=== PATIENT | female | born 1955 | race African-American/Black ===

== ENCOUNTER 2016-11-25 03:54 | Emergency (ER) ==
[2016-11-25 04:07] VITALS: BP 156/90; TEMP 97.7; BMI 26.0
[2016-11-25] MEDS ORDERED: DECADRON 4 MG/ML SDV IM STA (04:15)
[2016-11-25] MEDS ORDERED: BENADRYL IM STA (04:16)
--- NOTE | 2016-11-25 05:37 | ED.PDOC ---
General ED Provider: Dr. MARIANO MÉNDEZ-ER Chief Complaint: Allergic Reaction Stated Complaint: my arm and my ear itch Time Seen by Physician: 04:00 Mode of Arrival: Walk-In Information Source: Patient Exam Limitations: No limitations Primary Care Provider: HANSA BARCENAS Nursing and Triage Documentation Reviewed and Agree: Yes Skin Complaint Exam - Skin/Soft Tissue Complaint/Exam Onset/Duration: 1hr Symptoms Are: Still present Timing: Constant Initial Severity: Mild Current Severity: Mild Location: left arm and left ear Character: Reports: Redness, Swelling, Raised. Denies: Painful Aggravating: Reports: None Alleviating: Reports: None Associated Signs and Symptoms: Denies: Fever, Chills, Itching, Drainage, Bruising, Tenderness, Red streaks, Joint swelling Related History: Reports: Insect bite/sting Related Surgical History: Reports: None Recent Exposure to Others w/Similar Symptoms: No Joint Tenderness Present: No Differential Diagnoses: Other Review of Systems - Review Of Systems Constitutional: Reports: No symptoms Eyes: Reports: No symptoms Ears, Nose, Mouth, Throat: Reports: No symptoms Respiratory: Reports: No symptoms Cardiac: Reports: No symptoms GI: Reports: No symptoms : Reports: No symptoms Musculoskeletal: Reports: No symptoms Skin: Reports: Lumps, Rash Neurological: Reports: No symptoms Endocrine: Reports: No symptoms Hematologic/Lymphatic: Reports: No symptoms All Other Systems: Reviewed and Negative Past Medical History - Past Medical History Previously Healthy: No Endocrine: Reports: DM 2 Cardiovascular: Reports: Hypertension Respiratory: Reports: COPD Hematological: Reports: Anemia Gastrointestinal: Reports: GERD Genitourinary: Reports: None Neuro/Psych: Reports: Anxiety, Depression Musculoskeletal: Reports: None Cancer: Reports: None Last Menstrual Period: post menopausal x 10 yrs - Surgical History General Surgical History: Reports: None - Family History Family History: Reports: None - Social History Smoking Status: Never smoker Hx Substance Use: No Alcohol Screening: None - Immunizations Tetanus Shot up to Date: No Physical Exam - Physical Exam Appearance: Well-appearing, No pain distress, Well-nourished Eyes: SCARLETT, EOMI, Conjunctiva clear ENT: Ears normal, Nose normal, Oropharynx normal Neck: Supple Respiratory: Airway patent, Breath sounds clear, Breath sounds equal, Respirations nonlabored Cardiovascular: RRR, Pulses normal, No rub, No murmur GI/: Soft, Nontender, No masses, Bowel sounds normal, No Organomegaly Musculoskeletal: Normal strength, ROM intact, No edema, No calf tenderness Skin: Warm, Dry, Normal color Neurological: Sensation intact, Motor intact, Reflexes intact, Cranial nerves intact, Alert, Oriented Psychiatric: Affect appropriate, Mood appropriate Re-Evaluation - Re-Evaluation Time of Re-Evaluation: 05:36 Status: Improved (swelling down--pruritis improved) Vital Signs Stable: Yes Pain Level: o Appearance: NAD Lungs: Clear Skin: Warm and Dry Neuro: Alert and Oriented X3 CV: RRR Critical Care Note - Critical Care Note Total Time (mins): 0 Course - Course Orders, Labs, Meds: Orders Category Date Time Status Dexamethasone 4 mg/ml Inj [Decadron 4 mg/ml Sdv] MEDS 11/25/16 04:15 Discontinued 8 mg IM ONCE STA Diphenhydramine Inj [Benadryl] MEDS 11/25/16 04:16 Discontinued 50 mg IM ONCE STA Medications Discontinued Medications Generic Name Dose Route Start Last Admin Trade Name Freq PRN Reason Stop Dose Admin Dexamethasone Sodium Phosphate 8 mg 11/25/16 04:15 11/25/16 04:21 Decadron 4 Mg/Ml Sdv IM 11/25/16 04:16 8 mg ONCE STA Administration Diphenhydramine HCl 50 mg 11/25/16 04:16 11/25/16 04:21 Benadryl IM 11/25/16 04:17 50 mg ONCE STA Administration Vital Signs: Temp Pulse Resp BP Pulse Ox 11/25/16 03:57 97.7 F 70 18 156/90 H 97 Departure - Departure Time of Disposition: 05:36 Disposition: HOME SELF-CARE Discharge Problem: Allergic state Instructions: Urticaria (ED) Condition: Good Pt referred to PMD for follow-up: Yes Additional Instructions: continue antihistamine--prednisone 30mg x 2 dayas then 20mg x 2 days then 10mg x 2 dayxs--return prn Allergies/Adverse Reactions: Allergies No Known Allergies Allergy (Verified 11/25/16 04:07) Home Medications: Ambulatory Orders Hum Insulin NPH/Reg Insulin Hm [Humulin 70-30 Pen] 30 units SQ BID 05/28/13 Metformin HCl 500 mg PO BIDWM 05/28/13 Potassium Chloride [Klor-Con 10] 20 meq PO BID 05/28/13 Simvastatin [Zocor] 20 mg PO BEDTIME 05/28/13 Aspirin [Aspirin EC] 81 mg PO DAILYWM 08/09/14 Hydralazine HCl 100 mg PO TIDWM 08/09/14 Clonidine HCl 0.2 mg PO TID #90 tablet 07/10/15 Chlorthalidone 25 mg PO DAILY 07/28/15 Metoprolol Succinate [Toprol Xl] 50 mg PO BID 07/28/15 Ranitidine HCl 150 mg PO BID 02/18/16 Amlodipine Besylate 5 mg PO BID #60 tablet 06/06/16 Cephalexin [Keflex] 500 mg PO Q8HR #15 capsule 06/06/16 Losartan Potassium [Cozaar] 50 mg PO BID #60 tablet 06/06/16 Disposition Discussed With: Patient
== END 2016-11-25 05:40 | disposition home or self-care (01) ==
LOC: ED 03:54
DX: L50.0 Allergic urticaria (principal)
CPT/HCPCS: 96372; 99282

== ENCOUNTER 2016-11-27 09:56 | Outpatient (CLI) ==
[2016-11-27 10:39] LABS: BASOPHILS % (AUTO) 0.3 % (0.0-3.0); EOSINOPHILS # (AUTO) 0.2 K/ul (0.0-0.7); HEMATOCRIT 36.9 % (37.0-47.0); HEMOGLOBIN 12.3 g/dl (12.0-16.0); IMMATURE GRANULOCYTE % (AUTO) 0.9 % (0.0-5.0); LYMPHOCYTES # (AUTO) 5.7 K/uL (0.60-3.4); MEAN CORPUSCULAR HEMOGLOBIN 25.6 pg (27.0-31.0); MEAN CORPUSCULAR HGB CONC 33.3 (31.8-35.4); MEAN CORPUSCULAR VOLUME 76.9 fl (81.0-99.0); MONOCYTES # (AUTO) 1.2 K/uL (0.4-2.0); MONOCYTES % (AUTO) 7.9 (0-10); NEUTROPHILS # (AUTO) 7.5 K/ul (2.0-6.9); NEUTROPHILS % (AUTO) 50.9; PLATELET COUNT 273 10^3/uL (140-440); WHITE BLOOD COUNT 14.72 K/ul (4.6-10.2)
[2016-11-27 11:22] LABS: ALBUMIN/GLOBULIN RATIO 1.03; ANION GAP 14.9; BILIRUBIN,TOTAL 0.31 mg/dL (0.00-1.20); BUN/CREATININE RATIO 20.54; CALCIUM 9.9 mg/dL (8.2-10.2); CREATININE 1.46 mg/dL (0.60-1.30); POTASSIUM 2.9 mmol/L (3.5-5.10); TOTAL PROTEIN 7.9 g/dL (5.8-8.1)
== END 2016-11-27 09:57 | disposition home or self-care (01) ==
LOC: LAB 09:56
PROVIDERS: ATTEND Emergency Medicine
DX: E11.9 Type 2 diabetes mellitus without complications (principal); I10 Essential (primary) hypertension; D64.9 Anemia, unspecified
CPT/HCPCS: 36415; 80053; 80061; 83036; 84443; 85025

== ENCOUNTER 2017-02-04 14:56 | Outpatient (CLI) ==
[2017-02-04 15:31] LABS: BASOPHILS % (AUTO) 0.5 % (0.0-3.0); EOSINOPHILS # (AUTO) 0.1 K/ul (0.0-0.7); EOSINOPHILS % (AUTO) 1.6 % (0.0-7.0); HEMATOCRIT 35.1 % (37.0-47.0); HEMOGLOBIN 11.9 g/dl (12.0-16.0); IMMATURE GRANULOCYTE % (AUTO) 0.6 % (0.0-5.0); LYMPHOCYTES # (AUTO) 3.1 K/uL (0.60-3.4); LYMPHOCYTES % (AUTO) 39.9 (10.0-50.0); MEAN CORPUSCULAR HEMOGLOBIN 26.4 pg (27.0-31.0); MEAN CORPUSCULAR HGB CONC 33.9 (31.8-35.4); MEAN CORPUSCULAR VOLUME 77.8 fl (81.0-99.0); MONOCYTES # (AUTO) 0.6 K/uL (0.4-2.0); MONOCYTES % (AUTO) 7.1 (0-10); NEUTROPHILS # (AUTO) 3.9 K/ul (2.0-6.9); NEUTROPHILS % (AUTO) 50.3; PLATELET COUNT 254 10^3/uL (140-440); RED BLOOD COUNT 4.51 10^6/ul (4.20-5.40); WHITE BLOOD COUNT 7.71 K/ul (4.6-10.2)
[2017-02-04 16:01] LABS: ALBUMIN 3.7 g/dL (3.4-5.0); ALBUMIN/GLOBULIN RATIO 1.16; ANION GAP 12.3; BILIRUBIN,TOTAL 0.31 mg/dL (0.00-1.20); BUN/CREATININE RATIO 13.13; CALCIUM 9.1 mg/dL (8.2-10.2); CHOL/HDL RATIO 4.3 (4.5-5.5); CREATININE 1.37 mg/dL (0.60-1.30); POTASSIUM 3.3 mmol/L (3.5-5.10); TOTAL PROTEIN 6.9 g/dL (5.8-8.1)
== END 2017-02-04 14:57 | disposition home or self-care (01) ==
LOC: LAB 14:56
PROVIDERS: ATTEND Internal Medicine
DX: E11.9 Type 2 diabetes mellitus without complications (principal); E78.5 Hyperlipidemia, unspecified; N18.9 Chronic kidney disease, unspecified; D63.1 Anemia in chronic kidney disease; K21.9 Gastro-esophageal reflux disease without esophagitis; I51.7 Cardiomegaly; Z79.899 Other long term (current) drug therapy
CPT/HCPCS: 36415; 80053; 80061; 82306; 83036; 84443; 85025

== ENCOUNTER 2017-06-29 12:37 | Outpatient (CLI) ==
[2017-06-29 12:59] LABS: BASOPHILS % (AUTO) 0.2 % (0.0-3.0); EOSINOPHILS # (AUTO) 0.1 K/ul (0.0-0.7); EOSINOPHILS % (AUTO) 1.8 % (0.0-7.0); HEMATOCRIT 35.8 % (37.0-47.0); IMMATURE GRANULOCYTE % (AUTO) 0.2 % (0.0-5.0); LYMPHOCYTES % (AUTO) 16.9 (10.0-50.0); MEAN CORPUSCULAR HEMOGLOBIN 26.1 pg (27.0-31.0); MEAN CORPUSCULAR HGB CONC 33.5 (31.8-35.4); MONOCYTES # (AUTO) 0.4 K/uL (0.4-2.0); NEUTROPHILS # (AUTO) 4.5 K/ul (2.0-6.9); NEUTROPHILS % (AUTO) 74.9; PLATELET COUNT 232 10^3/uL (140-440); RED BLOOD COUNT 4.59 10^6/ul (4.20-5.40); WHITE BLOOD COUNT 6.04 K/ul (4.6-10.2)
[2017-06-29 14:06] LABS: ALBUMIN 3.2 g/dL (3.4-5.0); ALBUMIN/GLOBULIN RATIO 0.86; ANION GAP 11.8; BILIRUBIN,TOTAL 0.42 mg/dL (0.00-1.20); BUN/CREATININE RATIO 17.69; CALCIUM 8.6 mg/dL (8.2-10.2); CREATININE 1.13 mg/dL (0.60-1.30); POTASSIUM 3.8 mmol/L (3.5-5.10); TOTAL PROTEIN 6.9 g/dL (5.8-8.1)
== END 2017-06-29 12:38 | disposition home or self-care (01) ==
LOC: LAB 12:37
PROVIDERS: ATTEND Internal Medicine
DX: E78.5 Hyperlipidemia, unspecified (principal); E11.9 Type 2 diabetes mellitus without complications; I10 Essential (primary) hypertension; K21.9 Gastro-esophageal reflux disease without esophagitis; I51.7 Cardiomegaly
CPT/HCPCS: 36415; 80053; 80061; 82607; 83036; 84443; 85025

== ENCOUNTER 2017-11-20 09:31 | Outpatient (CLI) ==
--- NOTE | 2017-11-20 11:45 | MAMMO ---
EXAM: Digital screening mammogram with tomosynthesis HISTORY: Screening COMPARISON: 12/09/2013 FINDINGS: Digital MLO and CC views of the right and left breast were performed. Tomosynthesis was p erformed. Computer aided detection utilized. Bilateral symmetric deodorant artifact noted in the axi llary regions. There are scattered fibroglandular densities. There is no evidence for mass, asymmet ry, distortion, or suspicious calcifications in either breast. IMPRESSION: 1. No evidence of malignancy in the right or left breast. 2. Annual screening mammogram is recommended in one year. BIRADS category 1, negative examination
== END 2017-11-20 09:32 | disposition home or self-care (01) ==
LOC: RAD 09:31
PROVIDERS: ATTEND Internal Medicine
DX: Z12.31 Encounter for screening mammogram for malignant neoplasm of breast (principal); E11.9 Type 2 diabetes mellitus without complications; E78.5 Hyperlipidemia, unspecified; I10 Essential (primary) hypertension
CPT/HCPCS: 36415; 77067; 80053; 80061; 83036; 84443; 85025

== ENCOUNTER 2018-01-21 13:28 | Outpatient (CLI) | END 2018-01-21 13:29 | disposition home or self-care (01) | LOC: LAB 13:28 | PROVIDERS: ATTEND Internal Medicine | DX: E11.9 Type 2 diabetes mellitus without complications (principal) | CPT/HCPCS: 81050; 82575; 84156; 87800 ==

== ENCOUNTER 2018-02-23 12:20 | Emergency (ER) ==
[2018-02-23 12:25] VITALS: BP 166/77; TEMP 98.9; BMI 26.6
--- NOTE | 2018-02-23 12:43 | ED.PDOC ---
General ED Provider: Dr. DEBBY BORREGO Chief Complaint: Headache Stated Complaint: facial pain .pt states her sinuses are tender Time Seen by Physician: 12:30 (pain consistent with prior sinus attacks ) Mode of Arrival: Walk-In Information Source: Patient Exam Limitations: No limitations Primary Care Provider: HANSA BARCENAS Nursing and Triage Documentation Reviewed and Agree: Yes Does patient meet sepsis criteria?: No If yes, has appropriate treatment been initiated?: No System Inflammatory Response Syndrome: Not Applicable Sepsis Protocol: For patient's 13 years and over: Temp is 96.8 and below OR 101 and greater Pulse >90 BPM Resp >20/minute Acutely Altered Mental Status Are patient's symptoms suggestive of a new infection, such as: -Pneumonia -Skin, Soft Tissue -Endocarditis -UTI -Bone, Joint Infection -Implantable Device -Acute Abdominal Infection -Wound Infection -Meningitis -Blood Stream Catheter Infection -Unknown EENT Complaint Exam - Nasal Complaint/Exam Onset/Duration: 1 da7 Symptoms Are: Still present Timing: Intermittent Initial Severity: Mild Current Severity: Mild Location: Posterior drainage Aggravating: Reports: None Alleviating: Reports: None Associated Signs and Symptoms: Reports: Nasal congestion, Sinus pain. Denies: Bruising, Hematuria, Hematochezia, Nasal discharge, Foreign body, Abnormal coags Related History: Reports: Similar episode Nasal Surgical History: Reports: None Foreign Body Present: No Differential Diagnoses: Sinusitis Review of Systems - Review Of Systems Constitutional: Reports: No symptoms Eyes: Reports: No symptoms Ears, Nose, Mouth, Throat: Reports: Nose pain (facial pain over maxillary sinuses ) Respiratory: Reports: No symptoms Cardiac: Reports: No symptoms GI: Reports: No symptoms : Reports: No symptoms Musculoskeletal: Reports: No symptoms Skin: Reports: No symptoms Neurological: Reports: Headache Endocrine: Reports: No symptoms Hematologic/Lymphatic: Reports: No symptoms All Other Systems: Reviewed and Negative Past Medical History - Past Medical History Previously Healthy: No Endocrine: Reports: DM 2 Cardiovascular: Reports: Hypertension Respiratory: Reports: COPD Hematological: Reports: Anemia Gastrointestinal: Reports: GERD Genitourinary: Reports: None Neuro/Psych: Reports: Anxiety, Depression Musculoskeletal: Reports: None Cancer: Reports: None Last Menstrual Period: menopause - Surgical History General Surgical History: Reports: None - Family History Family History: Reports: None - Social History Smoking Status: Never smoker Hx Substance Use: No Alcohol Screening: None Physical Exam - Physical Exam Appearance: Well-appearing, No pain distress, Well-nourished Eyes: SCARLETT, EOMI, Conjunctiva clear ENT: Oropharynx normal (pain over maxillary sinuses ) Respiratory: Airway patent, Breath sounds clear, Breath sounds equal, Respirations nonlabored Cardiovascular: RRR, Pulses normal, No rub, No murmur GI/: Soft, Nontender, No masses, Bowel sounds normal, No Organomegaly Musculoskeletal: Normal strength, ROM intact, No edema, No calf tenderness Skin: Warm, Dry, Normal color Neurological: Sensation intact, Motor intact, Reflexes intact, Cranial nerves intact, Alert, Oriented Psychiatric: Affect appropriate, Mood appropriate Critical Care Note - Critical Care Note Total Time (mins): 0 Course - Course Vital Signs: Temp Pulse Resp BP Pulse Ox 02/23/18 12:20 98.9 F 80 16 166/77 H 95 Departure - Departure Time of Disposition: 12:44 Disposition: HOME SELF-CARE Discharge Problem: Headache Maxillary sinusitis Qualifiers: Chronicity: acute Recurrence: not specified as recurrent Qualified Code(s): J01.00 - Acute maxillary sinusitis, unspecified Instructions: Sinusitis (ED) Condition: Good Pt referred to PMD for follow-up: Yes IPMP verified?: No Additional Instructions: Please call your Family Physician as soon as possible to schedule a follow-up appointment. Prescriptions: Amoxicillin 500 mg PO Q8HR #21 tablet Prednisone 20 mg PO DAILYWM #7 tablet Allergies/Adverse Reactions: Allergies No Known Allergies Allergy (Verified 02/23/18 12:27) Home Medications: Ambulatory Orders Hum Insulin NPH/Reg Insulin Hm [Humulin 70-30 Pen] 30 units SQ BID 05/28/13 Metformin HCl 500 mg PO BIDWM 05/28/13 Potassium Chloride [Klor-Con 10] 20 meq PO BID 05/28/13 Simvastatin [Zocor] 20 mg PO BEDTIME 05/28/13 Aspirin [Aspirin EC] 81 mg PO DAILYWM 08/09/14 Hydralazine HCl 100 mg PO TIDWM 08/09/14 Clonidine HCl 0.2 mg PO TID #90 tablet 07/10/15 Chlorthalidone 25 mg PO DAILY 07/28/15 Metoprolol Succinate [Toprol Xl] 50 mg PO BID 07/28/15 Ranitidine HCl 150 mg PO BID 02/18/16 Amlodipine Besylate 5 mg PO BID #60 tablet 06/06/16 Losartan Potassium [Cozaar] 50 mg PO BID #60 tablet 06/06/16 Amoxicillin 500 mg PO Q8HR #21 tablet 02/23/18 Prednisone 20 mg PO DAILYWM #7 tablet 02/23/18
== END 2018-02-23 12:50 | disposition home or self-care (01) ==
LOC: ED 12:20
DX: J01.00 Acute maxillary sinusitis, unspecified (principal)
CPT/HCPCS: 99282

== ENCOUNTER 2018-05-19 15:46 | Outpatient (CLI) | END 2018-05-19 15:47 | disposition home or self-care (01) | LOC: LAB 15:46 | PROVIDERS: ATTEND Internal Medicine | DX: E78.5 Hyperlipidemia, unspecified (principal); E11.9 Type 2 diabetes mellitus without complications; I10 Essential (primary) hypertension | CPT/HCPCS: 36415; 80053; 80061; 84439; 84443 ==

== ENCOUNTER 2018-05-28 08:13 | Outpatient (CLI) | END 2018-05-28 08:14 | disposition home or self-care (01) | LOC: LAB 08:13 | PROVIDERS: ATTEND Internal Medicine | DX: E78.5 Hyperlipidemia, unspecified (principal); I10 Essential (primary) hypertension; E11.9 Type 2 diabetes mellitus without complications | CPT/HCPCS: 36415; 83036; 85025 ==

== ENCOUNTER 2018-09-06 10:25 | Outpatient (CLI) ==
[2018-06-26 16:43] VITALS: BMI 26.4
== END 2018-09-06 10:26 | disposition home or self-care (01) ==
LOC: LAB 10:25
PROVIDERS: ATTEND Internal Medicine
DX: E78.5 Hyperlipidemia, unspecified (principal); E11.9 Type 2 diabetes mellitus without complications; I10 Essential (primary) hypertension
CPT/HCPCS: 36415; 80053; 80061; 83036; 84439; 84443; 85025

== ENCOUNTER 2018-11-16 22:02 | Emergency (ER) ==
[2018-11-16 22:11] VITALS: TEMP 99.2; BMI 25.7
--- NOTE | 2018-11-16 22:37 | ED.PDOC ---
General ED Provider: Dr. DAVID ORNELAS Chief Complaint: Hypertension Stated Complaint: takes 6 antrihypertensive action meds on clock time based schedule.Took all so far yet BP stayed at 191/115 what made her come in.No distress, Time Seen by Physician: 22:50 Mode of Arrival: Walk-In Information Source: Patient Exam Limitations: No limitations Primary Care Provider: HANSA BARCENAS Nursing and Triage Documentation Reviewed and Agree: Yes Does patient meet sepsis criteria?: Yes If yes, has appropriate treatment been initiated?: Yes System Inflammatory Response Syndrome: Not Applicable Sepsis Protocol: For patient's 13 years and over: Temp is 96.8 and below OR 101 and greater Pulse >90 BPM Resp >20/minute Acutely Altered Mental Status Are patient's symptoms suggestive of a new infection, such as: -Pneumonia -Skin, Soft Tissue -Endocarditis -UTI -Bone, Joint Infection -Implantable Device -Acute Abdominal Infection -Wound Infection -Meningitis -Blood Stream Catheter Infection -Unknown Cardiovascular Complaint Exam - Hypertension Complaint/Exam Onset/Duration: today Symptoms Are: Still present Timing: Constant Reported B/P Prior to Arrival: 200/94 Aggravating: Reports: Exertion Alleviating: Reports: None Associated Signs and Symptoms: Reports: Anxiety Related History: Reports: Similar episode, Current ARBs, Current Beta Yuri, Current Ca Vann.Yuri, Current Diuretic, Other Related Surgical History: Reports: None Cardiac Risk Factors: Reports: Hypertension, Diabetes Recent Change in Medications: No A/V [place]: No Papilledema Present: No JVD Present: No Carotid Bruit Present: No Femoral Pulses Bounding: No Differential Diagnoses: Hypertension, Hypertensive Urgency, Hyperthyroidism, [place] , Other Quality Indicator For Non-Traumatic Chest Pain/Syncope: EKG Performed Review of Systems - Review Of Systems Constitutional: Reports: No symptoms Eyes: Reports: No symptoms Ears, Nose, Mouth, Throat: Reports: No symptoms Respiratory: Reports: No symptoms Cardiac: Reports: No symptoms GI: Reports: No symptoms : Reports: No symptoms Musculoskeletal: Reports: Muscle pain Skin: Reports: No symptoms Neurological: Reports: No symptoms Endocrine: Reports: No symptoms Hematologic/Lymphatic: Reports: No symptoms All Other Systems: Reviewed and Negative Past Medical History - Past Medical History Previously Healthy: No Endocrine: Reports: DM 2 Cardiovascular: Reports: Hypertension Respiratory: Reports: COPD Hematological: Reports: Anemia Gastrointestinal: Reports: GERD Genitourinary: Reports: None Neuro/Psych: Reports: Anxiety, Depression Musculoskeletal: Reports: None Cancer: Reports: None Last Menstrual Period: UNKNOWN - Surgical History General Surgical History: Reports: None - Family History Family History: Reports: None - Social History Smoking Status: Never smoker Hx Substance Use: No Alcohol Screening: Occasionally - Immunizations Tetanus Shot up to Date: No Physical Exam - Physical Exam Appearance: Well-appearing Ill-appearing: None Pain Distress: None Eyes: SCARLETT, EOMI, Conjunctiva clear ENT: Ears normal, Nose normal, Oropharynx normal Neck: Supple Respiratory: Airway patent, Breath sounds clear, Respirations nonlabored Cardiovascular: RRR, Pulses normal, No rub GI/: Soft, Nontender Musculoskeletal: Normal strength, No edema Skin: Warm Neurological: Sensation intact, Cranial nerves intact, Alert, Oriented Psychiatric: Affect appropriate Interpretation - EKG Interpretation Time of EKG #1: 23:10 (LVH,PT denies [place]) Rate: Normal Rhythm: Sinus Re-Evaluation - Re-Evaluation Time of Re-Evaluation: 23:24 Status: Improved Vital Signs Stable: Yes Appearance: NAD Lungs: Clear Skin: Warm and Dry Neuro: Alert and Oriented X3 CV: RRR - Re-Evaluation Time of Re-Evaluation: 23:49 Vital Signs Stable: Yes (155/76) Physician Notification - Case Discussed Physician Notified: Dr Barcenas consulted Time of Notification: 22:30 ('s patient) Critical Care Note - Critical Care Note Total Time (mins): 0 Course - Course Hematology/Chemistry: 11/16/18 23:15 Orders, Labs, Meds: Lab Review 11/16/18 11/16/18 23:15 23:25 Sodium 137.7 Potassium 3.39 L Chloride 101.9 Carbon Dioxide 24.3 Anion Gap 14.89 BUN 20.2 H Creatinine 1.37 H Estimated GFR (MDRD) 47.00 BUN/Creatinine Ratio 14.74 Glucose 242.3 H Calcium 9.13 Total Bilirubin 0.27 AST 23.3 ALT 20.9 Alkaline Phosphatase 116.9 Troponin I < 0.012 Total Protein 6.96 Albumin 4.22 Globulin 2.74 Albumin/Globulin Ratio 1.54 Urine Color Light Urine Clarity Clear Urine pH 7.5 Ur Specific [place] 1.020 Urine Protein 2+ Urine Glucose (UA) 1+ Urine Ketones Negative Urine Blood Trace-intact Urine Nitrite Negative Urine Bilirubin Negative Urine Urobilinogen 0.2 Ur Leukocyte Esterase Negative Urine Microscopic RBC 5-10 Ur Squamous Epith Cells 2-5 Orders Category Date Time Status EKG-(ED ONLY) Stat CARDIO 11/16/18 23:01 Ordered IV [ED IV/MEDIPORT/POWERPORT] .ONCE EMERGENCY 11/16/18 22:55 Active Vital signs [ED VITAL SIGNS] .ONCE EMERGENCY 11/16/18 23:42 Ordered COMPREHENSIVE METABOLIC PANEL Stat LAB 11/16/18 23:15 Results TROPONIN I Stat LAB 11/16/18 23:15 Results URINALYSIS WITH MICROSCOPIC Stat LAB 11/16/18 23:25 Completed 0.9 % Sodium Chloride [Saline Flush] MEDS 11/16/18 22:55 Ordered 1 syr IVF PRN PRN Amlodipine Besylate [Norvasc] MEDS 11/16/18 22:47 Discontinued 5 mg PO ONCE STA Enalaprilat Dihydrate [Vasotec IV] MEDS 11/16/18 22:46 Discontinued 1.25 mg IVP ONCE STA Medications Generic Name Dose Route Start Last Admin Trade Name Freq PRN Reason Stop Dose Admin Sodium Chloride 1 syr 11/16/18 22:55 11/16/18 23:00 Saline Flush IVF 1 syr PRN PRN Administration To flush IV Discontinued Medications Generic Name Dose Route Start Last Admin Trade Name Freq PRN Reason Stop Dose Admin Amlodipine Besylate 5 mg 11/16/18 22:47 11/16/18 22:56 Norvasc PO 11/16/18 22:48 5 mg ONCE STA Administration Enalaprilat 1.25 mg 11/16/18 22:46 11/16/18 22:57 Vasotec Iv IVP 11/16/18 22:47 1.25 mg ONCE STA Administration Vital Signs: Temp Pulse Resp BP Pulse Ox 11/16/18 22:03 99.2 F 91 H 16 211/94 H 97 AMI Core - EKG Initial Interpretation EKG Initial Interpretation Date: 11/16/18 (NSR,LVH,Patient denies any [place]) LYNNE Risk Score LYNNE Risk Score: Risk Score Odds of by 30D 0 0.1 (0.1-0.2) 1 0.3 (0.2-0.3) 2 0.4 (0.3-0.5) 3 0.7 (0.6-0.9) 4 1.2 (1.0-1.5) 5 2.2 (1.9-2.6) 6 3.0 (2.5-3.6) 7 4.8 (3.8-6.1) Departure - Departure Time of Disposition: 23:50 Disposition: HOME SELF-CARE Discharge Problem: Hypertension associated with diabetes Instructions: Type 2 Diabetes in Adults: New Diagnosis (DC) Condition: Good Pt referred to PMD for follow-up: Yes (fu with Dr Barcenas at am.) IPMP verified?: No Allergies/Adverse Reactions: Allergies No Known Allergies Allergy (Verified 11/16/18 22:11) Home Medications: Ambulatory Orders Hum Insulin NPH/Reg Insulin Hm [Humulin 70-30 Pen] 30 units SQ BID 05/28/13 Metformin HCl 500 mg PO BIDWM 05/28/13 Simvastatin [Zocor] 20 mg PO BEDTIME 05/28/13 Hydralazine HCl 100 mg PO TIDWM 08/09/14 Clonidine HCl 0.2 mg PO TID #90 tablet 07/10/15 Metoprolol Succinate [Toprol Xl] 50 mg PO BID 07/28/15 Ranitidine HCl 150 mg PO BID 02/18/16 Amlodipine Besylate 10 mg PO BID 11/16/18 Furosemide 20 mg PO DAILY 11/16/18 Losartan Potassium [Cozaar] 100 mg PO DAILY 11/16/18 Potassium Chloride 10 meq PO TID 11/16/18 Disposition Discussed With: Patient, Family
[2018-11-16] MEDS ORDERED: VASOTEC IV IVP STA (22:46)
[2018-11-16] MEDS ORDERED: NORVASC PO STA (22:47)
[2018-11-17 00:04] VITALS: BP 155/78
== END 2018-11-17 00:02 | disposition home or self-care (01) ==
LOC: ED 22:02
DX: I10 Essential (primary) hypertension (principal); E11.9 Type 2 diabetes mellitus without complications; Z79.899 Other long term (current) drug therapy
CPT/HCPCS: 36415; 80053; 81001; 84484; 93005; 93010; 96374; 99283

== ENCOUNTER 2018-12-13 15:31 | Observation (INO) ==
[2018-12-13 16:02] VITALS: BMI 26.5
[2018-12-13] MEDS ORDERED: NITROSTAT SL PRN (16:13)
[2018-12-13] MEDS ORDERED: TYLENOL PO PRN (16:13)
[2018-12-13] MEDS ORDERED: ATROPINE SULFATE PFS IVP PRN (16:13)
[2018-12-13] MEDS ORDERED: VISTARIL INJ IM PRN (16:13)
[2018-12-13] MEDS ORDERED: SODIUM CHLORIDE 1,000 ML IV SCH ×2 (16:30→20:00)
--- NOTE | 2018-12-13 17:12 | DI ---
EXAM: Chest two views HISTORY: Shortness of breath COMPARISON: 06/04/2016 TECHNIQUE: Two views of the chest were performed FINDINGS: The lungs are clear. There is no pleural effusion or pneumothorax. The heart is normal i n size. The mediastinal contour is normal. There are no acute abnormalities of the bones. IMPRESSION: No acute cardiopulmonary process.
[2018-12-13] MEDS: CATAPRES PO SCH (17:27)
[2018-12-13] MEDS: APRESOLINE PO SCH (17:27)
[2018-12-13] MEDS: MICRO-K CAP PO SCH (17:28)
[2018-12-13] MEDS ORDERED: NON-FORMULARY MEDICATION (Potassium Chloride [Potassium Chloride] 10 MEQ) PO SCH (18:00)
[2018-12-13] MEDS ORDERED: NON-FORMULARY MEDICATION (Hydralazine Hcl [Hydralazine Hcl] 100 MG) PO SCH (18:00)
[2018-12-13] MEDS ORDERED: NON-FORMULARY MEDICATION (Clonidine Hcl [Clonidine Hcl] 0.2 MG) PO SCH (18:00)
[2018-12-13] MEDS ORDERED: VASOTEC IV IVP STA (19:44)
[2018-12-13] MEDS ORDERED: VASOTEC IV IVP PRN (19:45)
[2018-12-13] MEDS ORDERED: INSULIN ISOPHANE SQ SCH (21:00)
[2018-12-13] MEDS ORDERED: INSULIN REGULAR SQ SCH (21:00)
[2018-12-13] MEDS ORDERED: REG INSULIN SQ SCH (21:00)
[2018-12-13] MEDS ORDERED: HUMULIN 70-30 SUBCUT SCH (21:00)
[2018-12-13] MEDS ORDERED: HUM INSULIN NPH SQ SCH (21:00)
[2018-12-13] MEDS: HUMULIN R SUBCUT PRN (21:21)
[2018-12-14] MEDS: LOPRESSOR PO SCH ×2 (00:43→12:49)
[2018-12-14] MEDS: APRESOLINE PO SCH ×3 (00:44→17:15)
[2018-12-14] MEDS: CATAPRES PO SCH ×3 (00:44→17:15)
[2018-12-14] MEDS: NORVASC PO SCH ×2 (00:45→12:49)
[2018-12-14] MEDS: MICRO-K CAP PO SCH ×3 (00:46→17:15)
[2018-12-14] MEDS: GLUCOPHAGE PO SCH ×2 (00:46→12:50)
[2018-12-14] MEDS: ZANTAC PO SCH ×2 (00:47→12:50)
[2018-12-14] MEDS ORDERED: TOPROL XL PO SCH (01:00)
[2018-12-14] MEDS ORDERED: NON-FORMULARY MEDICATION (Metformin Hcl [Metformin Hcl] 500 MG) PO SCH (01:00)
[2018-12-14] MEDS ORDERED: NON-FORMULARY MEDICATION (Ranitidine Hcl [Ranitidine Hcl] 150 MG) PO SCH (01:00)
[2018-12-14] MEDS: HUMULIN R SUBCUT PRN ×2 (05:37→21:16)
[2018-12-14] MEDS ORDERED: ASPIRIN EC PO SCH (08:00)
--- NOTE | 2018-12-14 08:47 | PCM.PROG ---
Attending Provider: ATTENDING PROVIDER: Dr. HANSA BARCENAS DATE OF SERVICE: 12/14/18 SUBJECTIVE: This 63 year old BLACK/ F was hospitalized 12/13/18 with atypical chest pain, shortness of breath, uncontrolled hypertension, fatigue and tired feeling. The patient is feeling a lot better. Her appetite has improved. Hydration status improved. REVIEW OF SYSTEMS: CONSTITUTIONAL: No night sweats. No fatigue, malaise, lethargy. No fever or chills. HEENT: Eyes: No visual changes. No eye pain. No eye discharge. ENT: No runny nose. No epistaxis. No sinus pain. No odynophagia. No congestion. RESPIRATORY: No cough, no congestion. No hemoptysis. No shortness of breath. CARDIOVASCULAR: No angina symptoms. No CHF symptoms. No atypical chest pain for CAD. No palpitations. No orthopnea.. GASTROINTESTINAL: No abdominal pain. No nausea or vomiting. No diarrhea or constipation. No hematemesis. No hematochezia. GENITOURINARY: No urgency. No frequency. No dysuria. No hematuria. No obstructive symptoms. No discharge. No pain. No significant abnormal bleeding. MUSCULOSKELETAL: No musculoskeletal pain; no joint swelling. NEUROLOGICAL: Awake, alert, oriented to time, place and person. No headache. No neck pain. No syncope. No seizures. No dizziness. No neurological deficit. PSYCHIATRIC: Not anxious. No depression. No suicidal thoughts. No homicidal thoughts. SKIN: No rash. No lesions. No wounds. ENDOCRINE: No unexplained weight loss. No weight gain. HEMATOLOGIC/LYMPHATIC: No anemia. No purpura. No petechiae. No prolonged or excessive bleeding. No palpable lymph nodes. PHYSICAL EXAMINATION: GENERAL: The patient is awake, alert and oriented, lying/sitting in bed in no distress. VITAL SIGNS: Temperature 97.6 F, Pulse 66, Respiratory Rate 16, BP 144/76, Pulse Ox 100% HEENT: Head normocephalic, atraumatic. Eyes: Extraocular muscles are intact. Pupils are equal, round and reactive to light and accommodation. Ears: No lesions. Nose appeared normal. Throat: No exudate or erythema. NECK: Supple. No JVD, no carotid bruit. No lymphadenopathy or thyromegaly. LUNGS: Clear to auscultation. Percussion note normal. Chest symmetrical. HEART: S1, S2, no S3. No murmurs. No cyanosis or clubbing. No ascites. Pulses: Dorsalis pedis and posterior tibial pulses +1 to +2 both sides. ABDOMEN: Soft. Non-tender. Bowel sounds active. No CVA tenderness. No mass felt. EXTREMITIES: No edema. Full range of motion of all extremities, equal. NEUROLOGIC: No focal deficit. Cranial nerves II through XII are grossly intact. No headache, no double vision or headache. SKIN: Warm and dry. Intact. Turgor-normal. LYMPHATIC: No palpable lymph nodes/no lymphedema. MUSCULOSKELETAL: Normal joints with no swelling. Muscle tone is normal. LAB REVIEW: 12/14/18 04:55 12/14/18 04:55 12/14/18 04:55: Sodium 138.1, Potassium 3.71, Chloride 105.5, Carbon Dioxide 23.8, Anion Gap 12.51, BUN 15.4, Creatinine 1.14, Estimated GFR (MDRD) 58.00, BUN/Creatinine Ratio 13.50, Glucose 173.5 H D, Calcium 8.71, Total Bilirubin 0.20, AST 19.8, ALT 16.1, Alkaline Phosphatase 78.2 D, Total Protein 6.25 L, Albumin 3.80, Globulin 2.45, Albumin/Globulin Ratio 1.55 12/14/18 04:55: WBC 6.10, RBC 4.25, Hgb 11.1 L, Hct 33.7 L, MCV 79.3 L, MCH 26.1 L, MCHC 32.9, RDW Coeff of Jose 13.2, Plt Count 255, Immature Gran % (Auto) 0.3, Neut % (Auto) 44.1, Lymph % (Auto) 44.6, [place] % (Auto) 8.0, Eos % (Auto) 2.5, Baso % (Auto) 0.5, Immature Gran # (Auto) 0.0, Neut # (Auto) 2.7, Lymph # ( Auto) 2.7, [place] # (Auto) 0.5, Eos # (Auto) 0.2, Baso # (Auto) 0.0 12/14/18 00:13: Total Creatine Kinase 182.6 H, CK-MB (CK-2) 1.160, CK-MB (CK-2) % 0.6300, Troponin I < 0.012 12/13/18 16:45: Urine Color Yellow, Urine Clarity Clear, Urine pH 7.0, Ur Specific [place] 1.015, Urine Protein 2+, Urine Glucose (UA) 1+, Urine Ketones Negative, Urine Blood Trace-intact, Urine Nitrite Negative, Urine Bilirubin Negative, Urine Urobilinogen 0.2, Ur Leukocyte Esterase Negative, Urine Microscopic RBC 0-2, Ur Squamous Epith Cells Not present 12/13/18 16:28: Hemoglobin A1c 8.54 H 12/13/18 16:28: Sodium 137.1, Potassium 3.37 L, Chloride 104.0, Carbon Dioxide 21.6 L, Anion Gap 14.87, BUN 19.1 H, Creatinine 1.20, Estimated GFR (MDRD) 55.00 , BUN/Creatinine Ratio 15.91, Glucose 232.4 H, Calcium 8.99, Total Bilirubin 0.29, AST 24.1, ALT 17.5, Alkaline Phosphatase 114.5, Total Creatine Kinase 202.8 H, CK-MB (CK-2) 1.240, CK-MB (CK-2) % 0.6100, Troponin I < 0.012, Total Protein 7.24, Albumin 4.52, Globulin 2.72, Albumin/Globulin Ratio 1.66 12/13/18 16:28: WBC 7.86, RBC 4.36, Hgb 11.5 L, Hct 34.2 L, MCV 78.4 L, MCH 26.4 L, MCHC 33.6, RDW Coeff of Jose 13.1, Plt Count 248, Immature Gran % (Auto) 0.4, Neut % (Auto) 47.0, Lymph % (Auto) 41.7, [place] % (Auto) 9.2, Eos % (Auto) 1.4, Baso % (Auto) 0.3, Immature Gran # (Auto) 0.0, Neut # (Auto) 3.7, Lymph # ( Auto) 3.3, [place] # (Auto) 0.7, Eos # (Auto) 0.1, Baso # (Auto) 0.0 ASSESSMENT: 1. Atypical chest pain. 2. Shortness of breath. 3. Uncontrolled hypertension. 4. Diabetes mellitus. Note: The patient is noncompliant of medications, lifestyle and diet. She does not take her medications as prescribed. Also, insulin dose varies and she self medicates. She doesn't check sugar as advised. We will do carotid scan, echocardiogram, stress echo Sestamibi,. PLAN: 1. D/C IV fluids. 2. No symptoms of CHF or coronary insufficiency. 3. EKG - sinus rhythm, LVH unchanged times two. 4. Telemetry - no arrhythmias. 5. Blood pressure this a.m. is well-controlled, required one dose of IV Vasotec. 6. Carotid scan. Plan and coordination of the patient's care discussed in the presence of Line Crew Supervisor and nurse. EDUCATION: Education carried out about diabetes mellitus and its complications, compliance with medications, lifestyle and diet. CONDITION: Guarded. SCRIBED BY: ALEXEY ARAYA, Leather Finisher scribed while in presence of service performed by Dr. HANSA BARCENAS on 12/14/18 ([id number])
[2018-12-14] MEDS ORDERED: HUMULIN 70-30 SUBCUT SCH (10:00)
[2018-12-14] MEDS ORDERED: HUMULIN 70-30 SUBCUT STA (10:43)
--- NOTE | 2018-12-14 11:57 | US ---
EXAM: Carotid ultrasound HISTORY: Hypertension COMPARISON: 06/05/2016 TECHNIQUE: Carotid ultrasound was performed using Duplex imaging with morris scale, color, and Doppler imaging performed. FINDINGS: Right carotid: There is atherosclerotic plaque in the bulb/internal carotid artery. Peak systolic v elocity measurement in the right internal carotid artery is 0.63 meters per second. End-diastolic ve locity measurement in the right internal carotid artery is 0.18 meters per second. Right internal to common carotid artery peak systolic velocity ratio is 0.8. Flow in the right vertebral artery is an tegrade. Left carotid: There is atherosclerotic plaque in the bulb/internal carotid artery. Peak systolic ve locity measurement in the left internal carotid artery is 0.52 meters per second. End-diastolic [place] measurement in the left internal carotid artery is 0.19 meters per second. Left internal to com mon carotid artery peak systolic velocity ratio measures 0.7. Flow in the left vertebral artery is a ntegrade. IMPRESSION: 1. Right internal carotid: Peak systolic velocity corresponds with mild (less than 50%) stenosis 2. Left internal carotid: Peak systolic velocity corresponds with mild (less than 50%) stenosis.
[2018-12-14] MEDS: LASIX TAB PO SCH (12:49)
[2018-12-14] MEDS: ZOCOR PO SCH (12:50)
[2018-12-14] MEDS ORDERED: NON-FORMULARY MEDICATION (Simvastatin [Zocor] 20 MG) PO SCH (13:00)
[2018-12-14] MEDS ORDERED: NON-FORMULARY MEDICATION (Losartan Potassium [Cozaar] 100 MG) PO SCH (13:00)
[2018-12-14] MEDS ORDERED: COZAAR PO SCH (13:00)
[2018-12-14] MEDS ORDERED: BENICAR PO ONE (18:50)
[2018-12-15] MEDS: APRESOLINE PO SCH ×3 (00:10→17:59)
[2018-12-15] MEDS: NORVASC PO SCH ×2 (00:10→13:48)
[2018-12-15] MEDS: LOPRESSOR PO SCH ×2 (00:10→13:48)
[2018-12-15] MEDS: GLUCOPHAGE PO SCH ×2 (00:10→13:47)
[2018-12-15] MEDS: MICRO-K CAP PO SCH ×3 (00:10→17:59)
[2018-12-15] MEDS: ZANTAC PO SCH ×2 (00:10→13:48)
[2018-12-15] MEDS: CATAPRES PO SCH ×3 (00:10→17:58)
--- NOTE | 2018-12-15 09:36 | STECHOSEST ---
Date of Test: 12/15/18 Ordering Physician: DR. HANSA BARCENAS Occupation: RETIRED Reason for Exam: CHEST PAIN, HTN, SOB, DM Smoking History: NON SMOKER Height: 61" Weight: 140 LBS Current Medications: HUMULIN, LOPRESSOR, AMLODIPINE, CLONIDINE, COZAAR, HYDRALAZINE, METFORMIN, FUROSEMIDE, ZOCOR, RANITIDINE Target Heart Rate: 132/156 Resting EKG: SINUS RHYTHM/ POOR "R" WAVE PROGRESSION/ LVH S-T SEGMENT STAGE MPH/GRADE HEART RATE BPM BLOOD PRESSURE mmhg RHYTHM +/- ELEVATION DEPRESSION SYMPTOMS At Rest 73 BPM 140/90 SR X NONE 1 1.7/10% 107BPM 190/88 SR X NONE 2 2.5/12% 118 BPM 194/88 SR X NONE 3 3.4/14% 4 4.2/16% 5 5.0/18% Immediately after 130 BPM SR X SHORT OF BREATH Minutes Post Exercise 4:00 75 BPM 166/82 SR X NONE Minutes Post Exercise Total Time: 6:42 Maximum Heart Rate Reached: 130 BPM Reason for Termination: SHORT OF BREATH 100% Oxygen saturation on room air with exercises Mets 9.[address]-T WAVE CHANGES FROM HEART RATE 73 BPM TO 130 BPM 2. NO CHEST PAIN OR DISCOMFORT 3. NO ARRHYTHMIAS 4. BLOOD PRESSURE RESPONSE: HYPERTENSION SYSTOLIC WITH EXERCISE NORMAL LEFT VENTRICULAR CONTRACTILITY--RESTING AND POST EXERCISE SESTAMIBI TO FOLLOW MTDD
[2018-12-15] MEDS: BENICAR PO SCH (09:44)
--- NOTE | 2018-12-15 09:51 | NM ---
Cardiac Stress Test HISTORY: Chest pain, hypertension, shortness of breath, diabetes. COMPARISON: None of this type. TECHNIQUE: Resting: The patient was injected with 3.5 mCi of volume 201 chloride intravenously after which a "r esting" SPECT study of the heart was performed. Stress: The patient was stressed using a Brian protocol and at the appropriate time injected with 25 .1 mCi of 99m technetium Sestamibi (Cardiolite) after which a "stress" SPECT study of the heart was p erformed. Gated images of the heart were also obtained to assess wall motion and calculate ejection fraction. For details of the stress protocol employed, reference is made to the separate report of t performing physician. FINDINGS: The stress perfusion images demonstrate a region of decreased to absent activity in the le ft ventricular apex with modest extension into the anteroseptal wall and greater extension into the i nferolateral wall. The resting perfusion images demonstrate return of perfusion to most of this jose manuel on consistent with ischemia. The left ventricular ejection fraction (LVEF) is 70 %. IMPRESSION: 1. Left ventricular myocardial perfusion demonstrates ischemia of the left ventricular apex with ext ension into contiguous anteroseptal wall and greater extension into contiguous inferolateral wall. 2. The left ventricular ejection fraction (LVEF) is 70 %.
--- NOTE | 2018-12-15 11:24 | HP ---
DATE OF SERVICE: 12/13/18 HISTORY OF PRESENT ILLNESS: This is a 63-year-old female with complaint of head feeling stopped up, tired, short of breath when walking and not feeling herself. No cough. PAST MEDICAL HISTORY: Hypertension History of leg edema Diabetes mellitus type 2 Dyslipidemia Anemia CKD Stage 3 - Dr. Coker GERD LVH MENSTRUAL HISTORY: Mammogram 11/18 [facility] Colonoscopy 2011, Dr. Virgen PAST SURGICAL HISTORY: None REVIEW OF SYSTEMS: CONSTITUTIONAL: Positive for fatigue. No fever. HEENT: No sinus drainage, no sore throat. RESPIRATORY: No cough, no congestion. CARDIOVASCULAR: Positive for shortness of breath. No atypical chest pain for coronary artery disease. No angina, CHF symptoms or palpitations. GASTROINTESTINAL: No melena or abdominal pain. No GERD. GENITOURINARY: No hematuria, no polyuria. ELECTRIC METER TESTER: Positive for dizziness. No blackout, no headache, no double vision. MUSCULOSKELETAL: Positive for osteoarthric pain. ENDOCRINE: No weight loss, no weight gain. SKIN: Not dry, no rash. PSYCHIATRIC: Not anxious, no depression, no suicidal thoughts, no homicidal thoughts. SOCIAL HISTORY: Nonsmoker. . Four children. No alcohol use. Homemaker. FAMILY HISTORY: Father . Mother - heart. Brother at [id number] with heart. No sisters. MEDICATIONS: (HOME) Norvasc 5 mg one p.o. two times per day one tablet twice daily Losartan 100 mg one p.o. one time per day Simvastatin 20 mg one p.o. once daily in the evening Metformin 500 mg one p.o. two times per day with morning and evening meals Chlorthalidone 25 mg one p.o. daily Metoprolol 50 mg one tablet p.o. two times per day with meals Aspirin 81 mg one tablet p.o. daily Lasix 20 mg one tablet p.o. once daily Klor-Con 10 mEq one tablet p.o. three times per day Humulin 70/30 Kwikpen 35 units subcutaneously per insulin protocol two times per day Ranitidine one tablet p.o. two times per day Clonidine 0.2 mg p.o. three times per day in a.m. Hydralazine 100 mg one tablet three times per day with food ALLERGIES: NKDA PHYSICAL EXAMINATION: V/S: Pulse 82, BP 162/80, temperature 97.8, 02 sat 98%. Weight 143 lbs, height 5 '1", BMI 27. GENERAL APPEARANCE: Oriented times three. HEENT: Normal. NECK: No JVP, no bruits. RESPIRATORY: Lungs are clear. CARDIOVASCULAR: S1, S2, no S3, Grade I/ murmur. No cyanosis, clubbing. No ascites. GI/ABDOMEN: No tenderness. Bowel sounds are active. EXTREMITIES: Trace left lower extremity edema, pulses +1, equal. ELECTRIC METER TESTER: Deep tendon reflexes, sensory, motor and gait all normal. RECTAL/PELVIC: Colonoscopy 2011, Dr. Virgen. Pelvic: Advised yearly. Mammogram [facility] ASSESSMENT: 1. SHORTNESS OF BREATH 2. CHEST PAIN 3. UNCONTROLLED HYPERTENSION 4. HISTORY OF OTITIS MEDIA 5. NONCOMPLIANT WITH MEDICATIONS AND LIFESTYLE, FOLLOWUP 6. HISTORY OF LEG EDEMA 7. HYPERTENSION 8. DIABETES MELLITUS TYPE 2 A1C (8.7) 09-06-18 9. DYSLIPIDEMIA 10. ANEMIA 11. CKD STAGE 3, DR. COKER 12. LVH 13. SINUSITIS PLAN: 1. Admit with routine telemetry orders. 2. EKG reviewed and discussed - LVH. 3. CBC, CMP now and daily. 4. Sliding scale coverage. 5. NS @ 75 cc/hr. 6. UA. 7. Chest x-ray. 8. A1C. 9. Echocardiogram Thursday a.m. 10. Stress echo Sestamibi - Thursday. 11. Regular diet. 12. Continue home medications. 13. Regular diet. TIME SPENT: More than 70 minutes. MTDD
[2018-12-15] MEDS: HUMULIN 70-30 SUBCUT SCH ×3 (12:48→17:24)
[2018-12-15] MEDS: LASIX TAB PO SCH (13:48)
[2018-12-15] MEDS: ZOCOR PO SCH (13:49)
[2018-12-15] MEDS: HUMULIN R SUBCUT PRN ×2 (13:50→20:05)
[2018-12-15] MEDS ORDERED: DEXTROSE 5%-1/2NS IV SOLUTION 1,000 ML IV SCH ×2 (15:08)
[2018-12-16] MEDS: ZANTAC PO SCH (01:10)
[2018-12-16] MEDS: APRESOLINE PO SCH ×2 (01:10→09:22)
[2018-12-16] MEDS: CATAPRES PO SCH ×2 (01:10→09:22)
[2018-12-16] MEDS: NORVASC PO SCH (01:11)
[2018-12-16] MEDS: GLUCOPHAGE PO SCH (01:11)
[2018-12-16] MEDS: MICRO-K CAP PO SCH ×2 (01:11→09:22)
[2018-12-16] MEDS: LOPRESSOR PO SCH (01:11)
[2018-12-16] MEDS: BENICAR PO SCH (08:23)
[2018-12-16] MEDS ORDERED: DECADRON 4 MG/ML SDV IM STA (09:01)
--- NOTE | 2018-12-16 09:03 | ECHOSTRESS ---
Date of Exam: 12/15/18 Ordering Physician: DR. HANSA BARCENAS Reason for Echo: CHEST PAIN, HTN, SOB, DM, STRESS SESTAMIBI--NO ISCHEMIA M-Mode Normal Adult Results LV Dimensions Normal Adult Results AoV Opening excursions >1.6 LVEDD-base- 3.5-5.8 Ao root dimensions 2.0-3.7 LVESD-base- 3.1-4.6 L. Atrium dimensions 1.9-3.8 Post. Wall thickness 0.8-1.1 IV septum (thickness) 0.7-1.2 Post. Wall excursion 0.72-1.3 Septal motion Systolic motion R. Ventricular cavity 1.5-2.0 LVEF 60% Paradoxical septal wall motion 2-D: NORMAL LEFT VENTRICLE CONTRACTILITY--RESTING AND POST EXERCISE M-MODE: MV: AV: TV: PV: CHAMBER SIZE: WALL MOTION: NORMAL LEFT VENTRICLE CONTRACTILITY--RESTING AND POST EXERCISE PERICARDIUM: INTERPRETATION: 1. NORMAL LEFT VENTRICLE CONTRACTILITY--RESTING AND POST EXERCISE MTDD
--- NOTE | 2018-12-16 09:10 | PCM.PROG ---
Attending Provider: ATTENDING PROVIDER: Dr. HANSA BARCENAS This patient is seen with Shahrzad Deras, Nurse Practitioner. DATE OF SERVICE: 12/16/18 SUBJECTIVE: This 63 year old BLACK/ F was hospitalized 12/13/18. The patient is sitting in bed resting comfortably. Blood pressure is controlled through the night. She seems to be doing well with Benicar. No chest pain or shortness of breath. Sestamibi positive yesterday. She has appointment with [facility] next . REVIEW OF SYSTEMS: CONSTITUTIONAL: No night sweats. No fatigue, malaise, lethargy. No fever or chills. HEENT: Eyes: No visual changes. No eye pain. No eye discharge. ENT: No runny nose. No epistaxis. No sinus pain. No odynophagia. No congestion. RESPIRATORY: No cough, no congestion. No hemoptysis. No shortness of breath. CARDIOVASCULAR: No angina symptoms. No CHF symptoms. No atypical chest pain for CAD. No palpitations. No orthopnea.. GASTROINTESTINAL: No abdominal pain. No nausea or vomiting. No diarrhea or constipation. No hematemesis. No hematochezia. GENITOURINARY: No urgency. No frequency. No dysuria. No hematuria. No obstructive symptoms. No discharge. No pain. No significant abnormal bleeding. MUSCULOSKELETAL: No musculoskeletal pain; no joint swelling. NEUROLOGICAL: Awake, alert, oriented to time, place and person. No headache. No neck pain. No syncope. No seizures. No dizziness. PSYCHIATRIC: Not anxious. No depression. No suicidal thoughts. No homicidal thoughts. SKIN: No rash. No lesions. No wounds. ENDOCRINE: No unexplained weight loss. No weight gain. HEMATOLOGIC/LYMPHATIC: No anemia. No purpura. No petechiae. No prolonged or excessive bleeding. No palpable lymph nodes. PHYSICAL EXAMINATION: GENERAL: The patient is awake, alert and oriented, sitting in bed in no distress. VITAL SIGNS: Temperature 97.9 F, Pulse 65, Respiratory Rate 18, BP 132/76, Pulse Ox 98% HEENT: Head normocephalic, atraumatic. Eyes: Extraocular muscles are intact. Pupils are equal, round and reactive to light and accommodation. Ears: No lesions. Nose appeared normal. Throat: No exudate or erythema. NECK: Supple. No JVD, no carotid bruit. No lymphadenopathy or thyromegaly. LUNGS: Diminished breath sounds. Clear to auscultation. Percussion note normal. Chest symmetrical. HEART: S1, S2, no S3. No murmurs. No cyanosis or clubbing. No ascites. Pulses: Dorsalis pedis and posterior tibial pulses +1 to +2 both sides. ABDOMEN: Soft. Non-tender. Bowel sounds active. No CVA tenderness. No mass felt. EXTREMITIES: No edema. Full range of motion of all extremities, equal. NEUROLOGIC: No focal deficit. Cranial nerves II through XII are grossly intact. No headache, no double vision or headache. SKIN: Not dry. Intact. Turgor-normal. LYMPHATIC: No palpable lymph nodes/no lymphedema. MUSCULOSKELETAL: Normal joints with no swelling. Muscle tone is normal. LAB REVIEW: 12/16/18 04:59 12/16/18 04:59 12/16/18 04:59: Sodium 137.8, Potassium 3.67, Chloride 103.6, Carbon Dioxide 25.0, Anion Gap 12.87, BUN 19.1 H, Creatinine 1.04, Estimated GFR (MDRD) 65.00, BUN/Creatinine Ratio 18.36, Glucose 105.9, Calcium 8.38 L, Total Bilirubin 0.21 , AST 21.9, ALT 16.3, Alkaline Phosphatase 73.3, Total Protein 6.38, Albumin 3.82, Globulin 2.56, Albumin/Globulin Ratio 1.49 12/16/18 04:59: WBC 6.62, RBC 4.32, Hgb 11.0 L, Hct 33.5 L, MCV 77.5 L, MCH 25.5 L, MCHC 32.8, RDW Coeff of Jose 12.9, Plt Count 259, Immature Gran % (Auto) 0.3, Neut % (Auto) 45.6, Lymph % (Auto) 41.4, [place] % (Auto) 8.9, Eos % (Auto) 3.3, Baso % (Auto) 0.5, Immature Gran # (Auto) 0.0, Neut # (Auto) 3.0, Lymph # ( Auto) 2.7, [place] # (Auto) 0.6, Eos # (Auto) 0.2, Baso # (Auto) 0.0 ASSESSMENT: 1. Hypertension controlled. 2. Chest pain- stress echo normal however Sestamibi positive. 3. Diabetes mellitus uncontrolled. PLAN: 1. Appointment with [facility] next . 2. Benicar 40 mg daily. 3. D/C home. 4. Per patient sliding scale. Of note: The patient is noncompliant with diet, medications and followup. She has multiple risk factors for CAD - discussed in detail. Plan and coordination of the patient's care discussed in the presence of Wire Tinner and nurse. CONDITION: Stable SCRIBED BY: ALEXEY ARAYA Wire Tinner scribed while in presence of service performed by Dr. Barcenas/Shahrzad Deras APRN on 12/16/18 ([id number])
--- NOTE | 2018-12-16 09:12 | ECHO2D ---
Date of Exam: 12/15/18 Ordering Physician: DR. HANSA BARCENAS Room #: 115 Reason for Echo: CHEST PAIN, UNCONTROLLED HTN, SOB, DM2 M-Mode Normal Adult Results LV Dimensions Normal Adult Results AoV Opening excursions >1.6 >1.6 LVEDD-base- 3.5-5.8 4.3 Ao root dimensions 2.0-3.7 3.6 LVESD-base- 3.1-4.6 L. Atrium dimensions 1.9-3.8 3.9 Post. Wall thickness 0.8-1.1 1.1 IV septum (thickness) 0.7-1.2 1.4 Post. Wall excursion 0.72-1.3 NORMAL Septal motion NORMAL Systolic motion R. Ventricular cavity 1.5-2.0 NORMAL LVEF 60% 65% Paradoxical septal wall motion NORMAL 2-D : 2-D M Mode Echocardiogram was performed using apical four chamber and left parasternal long and short axis views. Mitral, tricuspid and aortic valves appear to be normal. Contractility of the left ventricle seems to be normal, so is the cavity size. Left atrial cavity size and aortic root appear to be normal. There is no pericardial effusion. There is no thrombus noted in the left ventricular or left aortic cavity. No mitral valve prolapse noted. M-MODE: MV: NORMAL AV: NORMAL TV: NORMAL PV: CHAMBER SIZE: NORMAL WALL MOTION: NORMAL PERICARDIUM: NORMAL INTERPRETATION: 1. LEFT VENTRICULAR HYPERTROPHY 2. NORMAL VALVES 3. NORMAL LEFT VENTRICULAR CONTRACTILITY MTDD
[2018-12-16] MEDS: HUMULIN 70-30 SUBCUT SCH ×2 (09:26→09:27)
[2018-12-16 09:58] VITALS: BP 149/78; TEMP 97.5
--- NOTE | 2018-12-16 10:20 | CM.DICTOOL ---
ADMISSION: 12/13/18 15:31 DISCHARGE: DECEMBER 16, 2018 DATE OF SERVICE: 12/16/18 FINAL DIAGNOSIS UNCONTROLLED HYPERTENSION SHORTNESS OF BREATH CHEST PAIN DM, TYPE 2 A1C 8.7 (09/06/2018) NON-COMPLIANCE WITH MEDS AND LIFE STYLE HYPERTENSION DYSLIPIDEMIA ANEMIA CHRONIC KIDNEY DISEASE, STAGE 3 (DR. COKER) SESTAMIBI: 12/15/2018 AREA OF ISCHEMIA OF THE LEFT VENTRICULAR APEX WITH EXTENSION LVEF 70% LAST VITALS Temp Pulse Resp BP Pulse Ox 97.9 F 65 18 132/76 98 12/16/18 05:25 12/16/18 05:25 12/16/18 05:25 12/16/18 05:25 12/16/18 05:25 TAKE THESE MEDICATIONS AT HOME Amlodipine Besylate (Norvasc) 5 mg PO 1300,0100 [facility] Last Admin: 12/16/18 01:11 Dose: 5 mg Clonidine (Catapres) 0.2 mg PO 0100,1000,1800 [facility] Last Admin: 12/16/18 01:10 Dose: 0.2 mg Furosemide (Lasix Tab) 20 mg PO 1300 [facility] Last Admin: 12/15/18 13:48 Dose: 20 mg Hydralazine HCl (Apresoline) 100 mg PO 0100,1000,1800 [facility] Last Admin: 12/16/18 01:10 Dose: 100 mg Insulin Human Isoph/Insulin Regular (Humulin 70-30) 18 unit SUBCUT 1000 [facility] Last Admin: 12/15/18 12:48 Dose: Not Given (PATIENT TAKES ACCORDING TO HER ACCU-CHECK RESULTS IF UNDER 200) Insulin Human Isoph/Insulin Regular (Humulin 70-30) 28 unit SUBCUT 1000 [facility] Last Admin: 12/15/18 17:24 Dose: Not Given (PATIENT TAKES ACCORDING TO HER ACCU-CHECK RESULTS IF OVER 200) Metformin HCl (Glucophage) 500 mg PO 0100,1300 [facility] Last Admin: 12/16/18 01:11 Dose: 500 mg Metoprolol Tartrate (Lopressor) 50 mg PO 1300,0100 [facility] Last Admin: 12/16/18 01:11 Dose: 50 mg Olmesartan (Benicar) 40 mg PO DAILY [facility] Last Admin: 12/16/18 08:23 Dose: 40 mg Potassium Chloride (Micro-K Cap) 10 meq PO 0100,1000,1800 [facility] Last Admin: 12/16/18 01:11 Dose: 10 meq Ranitidine HCl (Zantac) 150 mg PO 0100,1300 [facility] Last Admin: 12/16/18 01:10 Dose: 150 mg Simvastatin (Zocor) 20 mg PO 1300 [facility] Last Admin: 12/15/18 13:49 Dose: 20 mg Aspirin 325 mg PO DAILY Last Admin: Claritin 10 mg PO DAILY Z-pac 250 mg PO as directed ALLERGIES No Known Allergies Allergy (Verified 11/16/18 22:11) DISCONTINUED MEDICATIONS Losartan (COZARR) NEW PRESCRIPTIONS: BENICAR (OLMESARTAN) 40 MG DAILY ASA 325 MG DAILY CLARITIN 10 MG DAILY Z-PAC 250 MG DIRECTED SMOKING: NOT APPLICABLE DISEASE SPECIFIC EDUCATION: TEST RESULT APPOINTMENTS ACTIVITY MEDICATION LIFESTYLE MODIFICATION IMPORTANCE OF CONTROLLING BLOOD PRESSURE IMPORTANCE OF MONITORING BLOOD SUGARS AND REDUCING A1C LAB REVIEW: 12/16/18 04:59 12/16/18 04:59 12/16/18 04:59: Sodium 137.8, Potassium 3.67, Chloride 103.6, Carbon Dioxide 25.0, Anion Gap 12.87, BUN 19.1 H, Creatinine 1.04, Estimated GFR (MDRD) 65.00, BUN/Creatinine Ratio 18.36, Glucose 105.9, Calcium 8.38 L, Total Bilirubin 0.21 , AST 21.9, ALT 16.3, Alkaline Phosphatase 73.3, Total Protein 6.38, Albumin 3.82, Globulin 2.56, Albumin/Globulin Ratio 1.49 12/16/18 04:59: WBC 6.62, RBC 4.32, Hgb 11.0 L, Hct 33.5 L, MCV 77.5 L, MCH 25.5 L, MCHC 32.8, RDW Coeff of Jose 12.9, Plt Count 259, Immature Gran % (Auto) 0.3, Neut % (Auto) 45.6, Lymph % (Auto) 41.4, Coal % (Auto) 8.9, Eos % (Auto) 3.3, Baso % (Auto) 0.5, Immature Gran # (Auto) 0.0, Neut # (Auto) 3.0, Lymph # ( Auto) 2.7, Coal # (Auto) 0.6, Eos # (Auto) 0.2, Baso # (Auto) 0.0 PLAN: DISCHARGE HOME WITH SPOUSE DIET: CONSISTENT CARBOHYDRATES, LOW SALT EAT REGULAR SCHEDULED MEALS ACTIVITY: REST AT HOME AVOID DANCING, LIFTING, ANY FORM OF EXERCISE OR EXERTIONAL TYPE ACTIVITY UNTIL SEEN BY [facility] ON THE CONTINUE TO CHECK BLOOD SUGARS AT LEAST 3 TIMES DAILY AND ADMINISTER INSULIN APPROPRIATE PER YOUR SCHEDULE CONTINUE TO CHECK BLOOD PRESSURES AT LEAST 1-2 TIMES DAILY AND KEEP LOG AN APPOINTMENT IS SCHEDULED WITH DR. BARCENAS/HAYDE IQBAL APRN ON December AT 10 AM AN APPOINTMENT IS SCHEDULED WITH DR. WHATLEY (WILL SEE REPAIRER CONTROLLER TESTER) ON December AT 11 AM AT [facility] [place] IN [place], [place] CODE STATUS: FULL CODE PATIENT ADVISED TO GO TO NEAREST ER IMMEDIATELY IF ANY CHEST PAIN, CHEST TIGHTNESS, CHEST PRESSURE OR SHORTNESS OF AIR SHE VOICES UNDERSTANDING OF THIS INFORMATION MRS. MARINELLI IS ALERT AND ORIENTED X 3. SHE LIVES AT HOME WITH HER . SHE IS EAGER FOR DISCHARGE TODAY AND IS PLEASED TO HEAR SHE WILL BE GOING HOME TODAY. SHE AND HER ARE AWARE AND AGREEABLE TO DISCHARGE PLANS AND APPOINTMENT THAT IS SCHEDULED AT [facility] [place] NEXT WEEK. SHE IS INDEPENDENT WITH ADL'S AND IS AMBULATORY IN THE ROOM AND HALLWAY. SHE DOES NOT REQUIRE USE OF ASSISTIVE DEVICE WITH AMBULATION. APPETITE IS GOOD WITH MEAL INTAKES OF 50-100%. LIQUID INTAKE IS GOOD. SHE IS CONTINENT OF BOWEL AND BLADDER AND DOES NOT IDENTIFY URINARY DIFFICULTIES. SKIN TURGOR IS GOOD. NO DECUBITUS ULCERS ARE PRESENT. __ MD HAYDE WILSON APRN
--- NOTE | 2018-12-20 13:36 | PN ---
DATE OF SERVICE: 12/15/18 SUBJECTIVE: The patient is doing well. She is up and about. The patient's stress test did not have any evidence of ischemia and did not have any chest pain. Her main problem is fatigue and tired feeling along with uncontrolled hypertension. It is to be noted, that in the hospital after a couple of days, the patient's blood pressure seems to be well-controlled. Also it has been noted that the patient does not take her insulin as ordered. She maniuplates the dose and does not take it enough. She has been educated about insulin and hypoglycemia many times in the past but is refusing to take enough insulin for the fear of having hypoglycemia. Diabetic complications discussed with her in detail involving all the organs. The patient's prognosis is poor considring patient's noncompliance to medications, followup and diet. The patient was seen along with the nurse practitioner. TIME SPENT: More than 30 minutes. Plan and coordination of the patient's care discussed in the presence of nurse. JOSE
--- NOTE | 2018-12-20 13:54 | PN ---
DATE OF SERVICE: 12/16/18 SUBJECTIVE: The patient is up and about. No evidence of coronary ischemia. Telemetry - sinus rhythm, no tachycardia. No ST-T wave changes. Stress Sestamibi was positive for reversiable ischemia. The patient will be seen by machine load clerk next week. The patient is strongly advised for exertion level of household work and strongly advised to monitor the blood pressure and take her medications regularly. The patient has been taken off Cozaar and put on Benicar. CONDITION AT TIME OF DISCHARGE: Stable. The patient was seen and examined with the nurse practitioner. TIME SPENT: More than 30 minutes. Plan and coordination of the patient's care discussed in the presence of nurse. JOSE
--- NOTE | 2018-12-20 13:55 | PN ---
BILLING 12/13/18 ADMISSION DAY LEVEL 5 12/14/18 INTERMEDIATE 12/15/18 INTERMEDIATE 12/16/18 DISCHARGE MTDD
--- NOTE | 2019-01-19 13:47 | DS ---
DATE OF SERVICE: 12/16/18 FINAL DIAGNOSIS: 1. UNCONTROLLED HYPERTENSION 2. SHORTNESS OF BREATH 3. CHEST PAIN 4. DM, TYPE 2 A1C 8.7 (09/06/2018) 5. NON-COMPLIANCE WITH MEDS AND LIFE STYLE 6. HYPERTENSION 7. DYSLIPIDEMIA 8. ANEMIA 9. CHRONIC KIDNEY DISEASE, STAGE 3 (DR. COKER) LAST VITALS: Temperature 97.9 12/16/18 @ 0525; pulse 65 12/16/18 @ 0525; respiratory rate 18 @ 0525; BP 132/76 12/16/18 @ 0525; pulse ox 98 12/16/18 @ 0525. DISCHARGE INSTRUCTIONS: 1. AN APPOINTMENT IS SCHEDULED WITH DR. BAGLEY/HAYDE IQBAL APRN ON December AT 10 AM. 2. AN APPOINTMENT IS SCHEDULED WITH DR. JORDAN (WILL SEE FAMILY HELPER) ON December AT 11 AM AT [facility] IN [place], [place]. 3. PATIENT ADVISED TO GO TO NEAREST ER IMMEDIATELY IF ANY CHEST PAIN, CHEST TIGHTNESS, CHEST PRESSURE OR SHORTNESS OF AIR, SHE VOICES UNDERSTANDING OF THIS INFORMATION. MEDICATIONS AT DISCHARGE: Amlodipine Besylate (Norvasc) 5 mg PO 1300,0100 [facility] Last Admin: 12/16/18 01:11 Dose: 5 mg Clonidine (Catapres) 0.2 mg PO 0100,1000,1800 [facility] Last Admin: 12/16/18 01:10 Dose: 0.2 mg Furosemide (Lasix Tab) 20 mg PO 1300 [facility] Last Admin: 12/15/18 13:48 Dose: 20 mg Hydralazine HCl (Apresoline) 100 mg PO 0100,1000,1800 [facility] Last Admin: 12/16/18 01:10 Dose: 100 mg Insulin Human Isoph/Insulin Regular (Humulin 70-30) 18 unit SUBCUT 1000 [facility] Last Admin: 12/15/18 12:48 Dose: Not Given (PATIENT TAKES ACCORDING TO HER ACCU-CHECK RESULTS IF UNDER 200) Insulin Human Isoph/Insulin Regular (Humulin 70-30) 28 unit SUBCUT 1000 [facility] Last Admin: 12/15/18 17:24 Dose: Not Given (PATIENT TAKES ACCORDING TO HER ACCU-CHECK RESULTS IF OVER 200) Metformin HCl (Glucophage) 500 mg PO 0100,1300 [facility] Last Admin: 12/16/18 01:11 Dose: 500 mg Metoprolol Tartrate (Lopressor) 50 mg PO 1300,0100 [facility] Last Admin: 12/16/18 01:11 Dose: 50 mg Olmesartan (Benicar) 40 mg PO DAILY [facility] Last Admin: 12/16/18 08:23 Dose: 40 mg Potassium Chloride (Micro-K Cap) 10 meq PO 0100,1000,1800 [facility] Last Admin: 12/16/18 01:11 Dose: 10 meq Ranitidine HCl (Zantac) 150 mg PO 0100,1300 [facility] Last Admin: 12/16/18 01:10 Dose: 150 mg Simvastatin (Zocor) 20 mg PO 1300 [facility] Last Admin: 12/15/18 13:49 Dose: 20 mg Aspirin 325 mg PO DAILY Last Admin: Claritin 10 mg PO DAILY Z-pac 250 mg PO as directed NEW PRESCRIPTIONS: BENICAR (OLMESARTAN) 40 MG DAILY ASA 325 MG DAILY CLARITIN 10 MG DAILY Z-PAC 250 MG DIRECTED DISCONTINUED MEDICATIONS: Losartan (Cozaar) DIET INSTRUCTIONS: CONSISTENT CARBOHYDRATES, LOW SALT EAT REGULAR SCHEDULED MEALS ACTIVITY: REST AT HOME AVOID DANCING, LIFTING, ANY FORM OF EXERCISE OR EXERTIONAL TYPE ACTIVITY UNTIL SEEN BY [facility] ON THE SMOKING: N/A DISEASE SPECIFIC EDUCATION: TEST RESULT APPOINTMENTS ACTIVITY MEDICATION LIFESTYLE MODIFICATION IMPORTANCE OF CONTROLLING BLOOD PRESSURE IMPORTANCE OF MONITORING BLOOD SUGARS AND REDUCING A1C HOSPITAL COURSE: This 63-year-old -[place] female who presented to our office with shortness of breath, elevated blood pressure 170/90, chest pain. She has a history of uncontrolled diabetes, is noncompliant with medications and lifestyle. She was admitted. Cardiac enzymes were negative. She showed no acute changes on her initial EKG. No acute changes in the office. In the hospital we discontinued her Cozaar, placed her on Benicar 40 mg daily. She did have some acute bronchitis, signs and symptoms. She was given a Z-pack orally in the hospital along with Decadron IM. Echo and stress test Sestamibi were performed by Dr. Bagley on the . Sestamibi showed that there was an area of ischemia on the left ventricular apex with extension. She does have multiple risk factors for coronary artery disease such as diabetes, dyslipidemia, noncompliance and positive family history. We have arranged an appointment for her to be seen by [facility] on the . She is not to lift, exert herself until see by cardiology. She is instructed to rest at home. We have instructed her on the importance of maintaining an A1C less than 7. Hers is currently 8.7. She is on sliding scale for insulin. Again she does have a history of noncompliance. She will be discharged in stable condition. She is instructed to go to the emergency room if any chest pain, chest tightness. On day of discharge, she has not had any chest pain for the past 48 hours. She is no longer short of breath. She has an appointment with Dr. Jordan on 12/23/18 at 11 a.m. Will discharge her in stable condition and followup with her next week. TIME SPENT: More than 60 minutes. JOSE
== END 2018-12-16 12:05 | disposition home or self-care (01) ==
LOC: UNDOADMOB 15:31 → MEDSURG B 15:31 → INTOOBSV 15:31
PROVIDERS: ADMIT Internal Medicine; ATTEND Internal Medicine
DX: R06.02 Shortness of breath (principal); R53.83 Other fatigue; R07.9 Chest pain, unspecified; I16.0 Hypertensive urgency; Z91.19 Patient's noncompliance with other medical treatment and regimen; E11.9 Type 2 diabetes mellitus without complications; E78.5 Hyperlipidemia, unspecified; D64.9 Anemia, unspecified; N18.3 Chronic kidney disease, stage 3 (moderate); I50.1 Left ventricular failure, unspecified; J32.9 Chronic sinusitis, unspecified
CPT/HCPCS: 36415; 80053; 81001; 82550; 82553; 82962; 83036; 84484; 85025; 93005; 93010; 96361; 96372; 96374; 96376; 97802; 99217; 99220; 99225

== ENCOUNTER 2019-01-03 10:17 | Outpatient (CLI) | END 2019-01-03 10:18 | disposition home or self-care (01) | LOC: LAB 10:17 | PROVIDERS: ATTEND Internal Medicine | DX: R94.39 Abnormal result of other cardiovascular function study (principal) | CPT/HCPCS: 36415; 80053; 85025 ==

== ENCOUNTER 2019-01-06 10:51 | Outpatient (CLI) | END 2019-01-06 10:52 | disposition home or self-care (01) | LOC: LAB 10:51 | PROVIDERS: ATTEND Specialist | DX: N18.9 Chronic kidney disease, unspecified (principal) | CPT/HCPCS: 36415; 80053; 84100 ==

== ENCOUNTER 2019-03-23 14:21 | Outpatient (RCR) ==
[2019-03-28 08:17] VITALS: BP 128/68; TEMP 208; BMI 24.5
== END 2019-04-02 23:59 ==
LOC: CAR.REHAB 14:21
PROVIDERS: ATTEND Thoracic Surgery (Cardiothoracic Vascular Surgery)
DX: Z95.1 Presence of aortocoronary bypass graft (principal)

== ENCOUNTER 2019-03-28 22:07 | Emergency (ER) ==
[2019-03-28 22:22] VITALS: BP 224/101; TEMP 99.1; BMI 24.8
--- NOTE | 2019-03-28 22:51 | ED.PDOC ---
General ED Provider: Dr. MARVIN GUAMAN Chief Complaint: Hypertension Stated Complaint: Patient states that she forgot to take her morning blood pressure medications this morning. Then this evening only took Clonidine and metoprolol. Has not had a chance to take her Night time Nifedipine. Denies any pain. Was worried because her blood pressure is elevated in the 200s/100s at home. Time Seen by Physician: 22:49 Mode of Arrival: Walk-In Information Source: Patient Primary Care Provider: HANSA BARCENAS Nursing and Triage Documentation Reviewed and Agree: Yes Does patient meet sepsis criteria?: No System Inflammatory Response Syndrome: Not Applicable Sepsis Protocol: For patient's 13 years and over: Temp is 96.8 and below OR 101 and greater Pulse >90 BPM Resp >20/minute Acutely Altered Mental Status Are patient's symptoms suggestive of a new infection, such as: -Pneumonia -Skin, Soft Tissue -Endocarditis -UTI -Bone, Joint Infection -Implantable Device -Acute Abdominal Infection -Wound Infection -Meningitis -Blood Stream Catheter Infection -Unknown Review of Systems - Review Of Systems Constitutional: Reports: No symptoms Eyes: Reports: No symptoms Ears, Nose, Mouth, Throat: Reports: No symptoms Respiratory: Reports: No symptoms Cardiac: Reports: No symptoms GI: Reports: No symptoms : Reports: No symptoms Musculoskeletal: Reports: No symptoms Skin: Reports: No symptoms Neurological: Reports: Anxiety Endocrine: Reports: No symptoms Hematologic/Lymphatic: Reports: No symptoms All Other Systems: Reviewed and Negative Past Medical History - Past Medical History Previously Healthy: No Endocrine: Reports: DM 2 Cardiovascular: Reports: Hypertension Respiratory: Reports: COPD Hematological: Reports: Anemia Gastrointestinal: Reports: GERD Genitourinary: Reports: None Neuro/Psych: Reports: Anxiety, Depression Musculoskeletal: Reports: None Cancer: Reports: None Last Menstrual Period: post-menopausal at 57 y/o - Surgical History General Surgical History: Reports: CABG (3 weeks ago ) - Family History Family History: Reports: None - Social History Smoking Status: Never smoker Hx Substance Use: No Alcohol Screening: Occasionally - Immunizations Tetanus Shot up to Date: No (unsure) Physical Exam - Physical Exam Appearance: Well-appearing, No pain distress, Well-nourished Eyes: SCARLETT, EOMI, Conjunctiva clear ENT: Ears normal, Nose normal, Oropharynx normal Respiratory: Airway patent, Breath sounds clear, Breath sounds equal, Respirations nonlabored Cardiovascular: RRR, Pulses normal, No rub, No murmur GI/: Soft, Nontender, No masses, Bowel sounds normal, No Organomegaly Musculoskeletal: Normal strength, ROM intact, No edema, No calf tenderness Skin: Warm, Dry, Normal color Neurological: Sensation intact, Motor intact, Cranial nerves intact, Alert, Oriented Psychiatric: Anxious Interpretation - EKG Interpretation Rate: Normal Rhythm: Sinus Ectopy: None Re-Evaluation - Re-Evaluation Time of Re-Evaluation: 00:39 Status: Improved Vital Signs Stable: Yes (127/75) Critical Care Note - Critical Care Note Total Time (mins): 0 Course - Course Orders, Labs, Meds: Orders Category Date Time Status EKG-(ED ONLY) Stat CARDIO 03/28/19 22:49 Completed Hydralazine HCl [Apresoline] MEDS 03/29/19 00:06 Discontinued 50 mg PO ONCE STA Medications Discontinued Medications Generic Name Dose Route Start Last Admin Trade Name Freq PRN Reason Stop Dose Admin Hydralazine HCl 50 mg 03/29/19 00:06 03/29/19 00:16 Apresoline PO 03/29/19 00:07 50 mg ONCE STA Administration Vital Signs: Temp Pulse Resp BP Pulse Ox 03/28/19 22:13 99.1 F 70 20 224/101 H 97 Departure - Departure Time of Disposition: 00:39 Disposition: HOME SELF-CARE Discharge Problem: Hypertension, uncontrolled, Non compliance with medical treatment Instructions: Chronic Hypertension (ED) Condition: Fair Pt referred to PMD for follow-up: Yes IPMP verified?: No Additional Instructions: MAKE SURE TO TAKE YOUR MEDICATIONS PRESCRIBED FOLLOW UP WITH PCP IN 3 DAYS Allergies/Adverse Reactions: Allergies No Known Allergies Allergy (Verified 03/28/19 22:33) Home Medications: Ambulatory Orders Metformin HCl 500 mg PO 1300,0100 05/28/13 Hydralazine HCl 100 mg PO 1000,1800,0100 08/09/14 Ranitidine HCl 150 mg PO 1300,0100 02/18/16 Furosemide 20 mg PO 1300 11/16/18 Clonidine HCl 0.2 mg PO 0900,1600,2200 12/13/18 Metoprolol Tartrate [Lopressor] 50 mg PO 1300,0100 12/13/18 Aspirin [Aspirin Chewable] 81 mg PO DAILY 03/03/19 Clopidogrel Bisulfate [Plavix] 75 mg PO DAILY 03/03/19 Nifedipine [Nifedipine ER] 30 mg PO DAILY 03/03/19 Rosuvastatin Calcium [Crestor] 20 mg PO DAILY 03/03/19 Hum Insulin NPH/Reg Insulin Hm [Humulin 70-30] 18 unit SUBCUT DIRECTED
[2019-03-29] MEDS ORDERED: APRESOLINE PO STA (00:06)
== END 2019-03-29 00:56 | disposition home or self-care (01) ==
LOC: ED 22:07
DX: I10 Essential (primary) hypertension (principal); Z91.14 Patient's other noncompliance with medication regimen; Z95.1 Presence of aortocoronary bypass graft; Z79.899 Other long term (current) drug therapy
CPT/HCPCS: 93005; 93010; 99284